=== PATIENT | male | born 1980 | race African-American/Black ===

== ENCOUNTER 2016-09-07 18:56 | Observation (INO) | payer SELFPAY ==
[~2016-09-07] VITALS: Ht 190.5 cm; Wt 87.0 kg
[2016-09-07 18:58] VITALS: BP 118/72; PULSE 77; RESP 20; TEMP 98.4; O2SAT 100
[2016-09-07] MEDS ORDERED: ASPIRIN 81 MG CHEW TAB PO ONE (19:30)
[2016-09-07] MEDS ORDERED: NITROGLYCERIN 0.4 MG SL 25 TABS/BTL SL ONE (19:30)
[2016-09-07] MEDS ORDERED: SODIUM CHLORIDE 0.9% FLUSH 10 ML FLUSH IVF PRN (19:30)
[2016-09-07 19:40] VITALS: BP_SYST 118; BP_SYST 143; BP_DIAS 72; BP_DIAS 76; RESP 18; O2SAT 98
--- NOTE | 2016-09-07 19:58 | RADRPT ---
EXAM DATE/TIME: 09/07/2016 19:41 [place] COMPARISON: CHEST PA & LAT, August 31, 2015, 11:56. INDICATIONS : Chest pain. MEDICAL HISTORY : None. SURGICAL HISTORY : None. ENCOUNTER: Initial ACUITY: 1 day PAIN SCORE: 8/10 LOCATION: Bilateral chest FINDINGS: A single view of the chest demonstrates the lungs to be symmetrically aerated without evidence of mas s, infiltrate or effusion. The cardiomediastinal contours are unremarkable. Osseous structures are intact. CONCLUSION: No acute disease. Ozzie Lombardi MD on September 07, 2016 at 19:56 Board Certified Radiologist. This report was verified electronically.
--- NOTE | 2016-09-07 20:14 | PD ---
HPI Chief Complaint: Chest Pain Time Seen by Provider: 19:30 Travel History International Travel<30 days: No Contact w/Intl Traveler<30days: No Traveled to known affect area: No History of Present Illness HPI Patient is a 35-year-old male presenting to emergency for evaluation of left chest pain. Patient states the pain started later this morning, initially it was in his back, while he was driving this morning he stated the pain started in his left chest wall. He states it's a 10 out of 10, stabbing, aching, throbbing in nature. He states it's exacerbates when he moves his arm. He denies any nausea, vomiting, headaches. He does report shortness of breath and the pain exacerbates. The pain does not radiate and he has not had any palpitations. Patient does admit to using cocaine yesterday he is a tobacco user and smokes marijuana occasionally. Patient reports that he had a "mild NV " 12 years ago. PFSH Past Medical History Hx Anticoagulant Therapy: No Cardiovascular Problems: Yes (mild NV) Chemotherapy: No Cerebrovascular Accident: No Diabetes: No Diminished Hearing: No Respiratory: No Past Surgical History Hysterectomy: No Social History Alcohol Use: No Tobacco Use: Yes (1/2 PPD) Substance Use: Yes (marijuana sometimes) Allergies-Medications (Allergen,Severity, Reaction): Coded Allergies: No Known Allergies (Unverified , 09/07/16) Reported Meds & Prescriptions Reported Meds & Active Scripts Active No Active Prescriptions or Reported Medications Review of Systems Except as stated in HPI: all other systems reviewed are Neg Cardiovascular: Positive: Chest Pain or Discomfort, No: Palpitations, Tachycardia, Diaphoresis, Dyspnea on exertion Respiratory: Positive: Shortness of Breath Gastrointestinal: No: Nausea, Abdominal Pain Musculoskeletal: Positive: Myalgias Physical Exam Narrative GENERAL: Developed, well-nourished, alert gentleman. Resting comfortably in no acute distress. SKIN: Focused skin assessment warm/dry. HEAD: Atraumatic. Normocephalic. EYES: Pupils equal and round. No scleral icterus. No injection or drainage. ENT: No nasal bleeding or discharge. Mucous membranes pink and moist. NECK: Trachea midline. No JVD. CARDIOVASCULAR: Regular rate and rhythm. No murmur appreciated. RESPIRATORY: No accessory muscle use. Clear to auscultation. Breath sounds equal bilaterally. GASTROINTESTINAL: Abdomen soft, non-tender, nondistended. Hepatic and splenic margins not palpable. MUSCULOSKELETAL: No obvious deformities. No clubbing. No cyanosis. No edema. Tenderness to palpation left anterior chest wall. NEUROLOGICAL: Awake and alert. No obvious cranial nerve deficits. Motor grossly within normal limits. Normal speech. PSYCHIATRIC: Appropriate mood and affect; insight and judgment normal. Data Data Last Documented VS Vital Signs Date Time Temp Pulse Resp B/P Pulse Ox O2 Delivery O2 Flow Rate FiO2 09/07/16 19:40 118/72 143/76 09/07/16 19:40 18 98 Room Air 09/07/16 18:58 98.4 77 Orders Electrocardiogram (09/07/16:25) Ckmb (Isoenzyme) Profile (09/07/16 19:25) Complete Blood Count With Diff (09/07/16 19:25) Comprehensive Metabolic Panel (09/07/16:25) D-Dimer (09/07/16 19:25) Magnesium (Mg) (09/07/16 19:25) Prothrombin Time / Inr (Pt) (09/07/16:25) Act Partial Throm Time (Ptt) (09/07/16 19:25) Troponin I (09/07/16 19:25) Chest, Single Ap (09/07/16:25) Ecg Monitoring (09/07/16:25) Bilateral Bp Monitoring (09/07/16:25) Iv Access Insert/Monitor (09/07/16:25) Oximetry (09/07/16 19:25) Oxygen Administration (09/07/16 19:25) Aspirin Chew (Aspirin Chew) (09/07/16 19:30) Sodium Chloride 0.9% Flush (Ns Flush) (09/07/16 19:30) Nitroglycerin Sl (Nitrostat Sl) (09/07/16 19:30) Labs Laboratory Tests Test 09/07/16 19:20 White Blood Count 10.4 TH/MM3 Red Blood Count 4.80 MIL/MM3 Hemoglobin 15.6 GM/DL Hematocrit 44.8 % Mean Corpuscular Volume 93.4 FL Mean Corpuscular Hemoglobin 32.6 PG Mean Corpuscular Hemoglobin 34.9 % Concent Red Cell Distribution Width 12.6 % Platelet Count 348 TH/MM3 Mean Platelet Volume 7.8 FL Neutrophils (%) (Auto) 74.7 % Lymphocytes (%) (Auto) 16.0 % Monocytes (%) (Auto) 6.3 % Eosinophils (%) (Auto) 2.5 % Basophils (%) (Auto) 0.5 % Neutrophils # (Auto) 7.8 TH/MM3 Lymphocytes # (Auto) 1.7 TH/MM3 Monocytes # (Auto) 0.7 TH/MM3 Eosinophils # (Auto) 0.3 TH/MM3 Basophils # (Auto) 0.1 TH/MM3 CBC Comment DIFF FINAL Differential Comment Sodium Level 139 MEQ/L Potassium Level 3.3 MEQ/L Chloride Level 103 MEQ/L Carbon Dioxide Level 28.4 MEQ/L Anion Gap 8 MEQ/L Blood Urea Nitrogen 7 MG/DL Creatinine 1.14 MG/DL Estimat Glomerular Filtration 89 ML/MIN Rate Random Glucose 79 MG/DL Calcium Level 9.2 MG/DL Magnesium Level 2.4 MG/DL Aspartate Amino Transf 11 U/L (AST/SGOT) Albumin 4.2 GM/DL MDM Medical Decision Making Medical Screen Exam Complete: Yes Emergency Medical Condition: Yes Interpretation(s) Vital Signs Date Time Temp Pulse Resp B/P Pulse Ox O2 Delivery O2 Flow Rate FiO2 09/07/16 19:40 118/72 143/76 09/07/16 19:40 18 98 Room Air 09/07/16 18:58 98.4 77 20 118/72 100 Room Air Differential Diagnosis Atypical chest pain versus musculoskeletal strain versus pleurisy versus NV versus arrhythmia versus electrolyte abnormality versus other Narrative Course Patient is a 35-year-old male presenting to emergency room evaluation of chest pain. He does admit to using cocaine last night. Vital signs are stable, labs and imaging ordered and pending. EKG shows sinus rhythm with ST elevation consistent with early repolarization. CBC is unremarkable. Chest x-rays and remarkable, no acute disease. Her patient is transferred to my attending physician Dr. Salamanca at the end of my shift. He will determine patient's disposition. Scripts No Active Prescriptions or Reported Meds Maritza Farooq Sep 07, 2016 20:14 Maritza Farooq Sep 07, 2016 20:14
[2016-09-07 20:29] LABS: AUTOMATED NEUTROPHIL # 7.8 TH/MM3 (1.8-7.7); BASOPHIL # 0.1 TH/MM3 (0-0.2); BASOPHIL % 0.5 % (0.0-2.0); EOSINOPHIL # 0.3 TH/MM3 (0-0.4); EOSINOPHIL % 2.5 % (0.0-4.0); HEMATOCRIT 44.8 % (39.0-51.0); HEMO FLAGS DIFF FINAL; LYMPHOCYTE # 1.7 TH/MM3 (1.0-4.8); MEAN CELL VOLUME 93.4 FL (80.0-100.0); MEAN CORPUSCULAR HEMOGLOBIN 32.6 PG (27.0-34.0); MEAN CORPUSCULAR HGB CONC 34.9 % (32.0-36.0); MONO % 6.3 % (0.0-8.0); NEUT % 74.7 % (16.0-70.0); PLATELET COUNT 348 TH/MM3 (150-450); RED CELL DISTRIBUTION WIDTH 12.6 % (11.6-17.2); WHITE BLOOD COUNT 10.4 TH/MM3 (4.0-11.0)
[2016-09-07 20:43] LABS: ANION GAP 8 MEQ/L (5-15); AST (GOT) 11 U/L (15-37); BICARBONATE 28.4 MEQ/L (21.0-32.0); BLOOD UREA NITROGEN 7 MG/DL (7-18); CHLORIDE 103 MEQ/L (98-107); GLOMERULAR FILTRATION RATE 89 ML/MIN (>89); MAGNESIUM 2.4 MG/DL (1.5-2.5); POTASSIUM 3.3 MEQ/L (3.5-5.1); SODIUM (NA) 139 MEQ/L (136-145)
[2016-09-07 20:47] LABS: ALKALINE PHOSPHATASE 76 U/L (45-117); ALT (GPT) 16 U/L (12-78); APTT (PATIENT) 26.6 SEC (24.3-30.1); CREATINE KINASE 165 U/L (39-308); INTERNATIONAL NORMALIZED RATIO 0.9 RATIO; PROTHROMBIN TIME - PATIENT 10.4 SEC (9.8-11.6); TOTAL BILIRUBIN ADULT 0.5 MG/DL (0.2-1.0)
[2016-09-07 21:02] LABS: CKMB 0.9 NG/ML (0.5-3.6)
--- NOTE | 2016-09-07 21:06 | PD ---
Data Data Last Documented VS Vital Signs Date Time Temp Pulse Resp B/P Pulse Ox O2 Delivery O2 Flow Rate FiO2 09/07/16 19:40 118/72 143/76 09/07/16 19:40 18 98 Room Air 09/07/16 18:58 98.4 77 Orders Electrocardiogram (09/07/16 19:25) Ckmb (Isoenzyme) Profile (09/07/16 19:25) Complete Blood Count With Diff (09/07/16 19:25) Comprehensive Metabolic Panel (09/07/16 19:25) D-Dimer (09/07/16 19:25) Magnesium (Mg) (09/07/16 19:25) Prothrombin Time / Inr (Pt) (09/07/16:25) Act Partial Throm Time (Ptt) (09/07/16 19:25) Troponin I (09/07/16 19:25) Chest, Single Ap (09/07/16 19:25) Ecg Monitoring (09/07/16 19:25) Bilateral Bp Monitoring (09/07/16:25) Iv Access Insert/Monitor (09/07/16:25) Oximetry (09/07/16 19:25) Oxygen Administration (09/07/16 19:25) Aspirin Chew (Aspirin Chew) (09/07/16 19:30) Sodium Chloride 0.9% Flush (Ns Flush) (09/07/16 19:30) Nitroglycerin Sl (Nitrostat Sl) (09/07/16 19:30) CKMB (09/07/16 19:20) CKMB% (09/07/16 19:20) Admit Order (Ed Use Only) (09/07/16 ) Activity Bed Rest With Brp (09/07/16 21:25) Vital Signs (Adult) Q4H (09/07/16 21:25) Cardiac Rhythm .As Directed (09/07/16 21:25) Notify Dr: Other .PRN (09/07/16 21:25) Resp Oxygen Nasal Cannula (09/07/16 ) Diet Npo (09/08/16 Breakfast) Ckmb (Isoenzyme) Profile (09/07/16 22:20) Ckmb (Isoenzyme) Profile (09/08/16 01:20) Troponin I (09/07/16 22:20) Troponin I (09/08/16 01:20) Electrocardiogram (09/07/16 22:20) Electrocardiogram (09/08/16 01:20) ^ Obtain (09/07/16 21:25) Sodium Chloride 0.9% Flush (Ns Flush) (09/08/16 09:00) Phlebotomy Instructor / Telemetry [id number] (09/07/16 21:25) Notify Parameters (09/07/16 21:25) Labs Laboratory Tests Test 09/07/16 19:20 White Blood Count 10.4 TH/MM3 Red Blood Count 4.80 MIL/MM3 Hemoglobin 15.6 GM/DL Hematocrit 44.8 % Mean Corpuscular Volume 93.4 FL Mean Corpuscular Hemoglobin 32.6 PG Mean Corpuscular Hemoglobin 34.9 % Concent Red Cell Distribution Width 12.6 % Platelet Count 348 TH/MM3 Mean Platelet Volume 7.8 FL Neutrophils (%) (Auto) 74.7 % Lymphocytes (%) (Auto) 16.0 % Monocytes (%) (Auto) 6.3 % Eosinophils (%) (Auto) 2.5 % Basophils (%) (Auto) 0.5 % Neutrophils # (Auto) 7.8 TH/MM3 Lymphocytes # (Auto) 1.7 TH/MM3 Monocytes # (Auto) 0.7 TH/MM3 Eosinophils # (Auto) 0.3 TH/MM3 Basophils # (Auto) 0.1 TH/MM3 CBC Comment DIFF FINAL Differential Comment Prothrombin Time 10.4 SEC Prothromb Time International 0.9 RATIO Ratio Activated Partial 26.6 SEC Thromboplast Time D-Dimer Quantitative (PE/DVT) 0.24 MG/L FEU Sodium Level 139 MEQ/L Potassium Level 3.3 MEQ/L Chloride Level 103 MEQ/L Carbon Dioxide Level 28.4 MEQ/L Anion Gap 8 MEQ/L Blood Urea Nitrogen 7 MG/DL Creatinine 1.14 MG/DL Estimat Glomerular Filtration 89 ML/MIN Rate Random Glucose 79 MG/DL Calcium Level 9.2 MG/DL Magnesium Level 2.4 MG/DL Total Bilirubin 0.5 MG/DL Aspartate Amino Transf 11 U/L (AST/SGOT) Alanine Aminotransferase 16 U/L (ALT/SGPT) Alkaline Phosphatase 76 U/L Total Creatine Kinase 165 U/L Creatine Kinase MB 0.9 NG/ML Troponin I LESS THAN 0.02 NG/ML Total Protein 7.9 GM/DL Albumin 4.2 GM/DL MDM Supervised Visit with SOLITARIO: Yes Narrative Course Patient care assumed from Maritza LIU at 2100. Patient 35-year-old male admits to cocaine use yesterday presents emergency Department with chest pain primarily on the left side feels tight. Per physician Hernan does have reproducible qualities. EKG shows some early repolarization otherwise negative. On my evaluation with the patient is resting comfortably in no apparent distress. Labs show a negative troponin. Discussed with him since he is a smoker half pack a day for many years as well as cocaine user recommended observation overnight in the chest pain center and he is agreeable. Diagnosis Primary Impression: Chest pain Qualified Code: R07.9 - Chest pain, unspecified type Additional Impression: Cocaine abuse Admitting Information Admitting Physician Requests: Observation Scripts No Active Prescriptions or Reported Meds Disposition: 01 DISCHARGE HOME Condition: Stable Etienne Salamanca MD Sep 07, 2016 21:06
[2016-09-07 22:25] VITALS: O2SAT 97
[2016-09-07 23:15] VITALS: PULSE 66
[2016-09-07 23:17] LABS: CREATINE KINASE 141 U/L (39-308)
[2016-09-07 23:30] LABS: CKMB LESS THAN 0.5 NG/ML (0.5-3.6)
[2016-09-07 23:49] VITALS: BP 132/60; PULSE 57; RESP 18; TEMP 97.5; O2SAT 98
[2016-09-08 02:38] LABS: CREATINE KINASE 135 U/L (39-308)
[2016-09-08 02:51] LABS: CKMB 0.7 NG/ML (0.5-3.6)
[2016-09-08 04:30] VITALS: PULSE 54
[2016-09-08 05:29] VITALS: BP 112/66; PULSE 54; RESP 18; O2SAT 97
[2016-09-08 08:00] VITALS: PULSE 63
[2016-09-08 08:15] VITALS: O2SAT 96
[2016-09-08 08:17] VITALS: BP 124/72; PULSE 60; RESP 18; TEMP 97; O2SAT 98
[2016-09-08] MEDS ORDERED: POTASSIUM CHLORIDE 20 MEQ CONTROLLED RELEASE TAB PO ONE (09:00)
[2016-09-08] MEDS ORDERED: SODIUM CHLORIDE 0.9% FLUSH 10 ML FLUSH SCH (09:00)
[2016-09-08] MEDS ORDERED: KETOROLAC TROMETHAMINE 30 MG/ML (IVP) VIAL IVP ONE (09:00)
--- NOTE | 2016-09-08 10:25 | HHI.HP ---
HPI Primary Care Physician No Primary Care Physician Chief Complaint Chest pain History of Present Illness This is a 35-year-old male that presents to the ED via private vehicle with a complaint of developing a discomfort yesterday at 7:00 in the morning almost immediately after awakening. 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 He found certain movements would worsen the symptoms. When the discomfort would intensify at a higher level he would become short of breath. There is no nausea or diaphoresis. He cannot recall any injuries or activities that may have caused his discomfort. He states that he did a bump of cocaine 2 days ago. He is is cocaine on average about twice a week. He also smokes marijuana. States he was told 12 years ago that had a mild MN and that is related to stress. He would benefit proximal 23 years old. He states he never had a heart catheterization or stress test. Denies recent illness. Denies fevers or chills. Review of Systems General: Patient denies fevers, chills recent, and recent travel HEENT: Patient denies headache, sore throat, difficulty swallowing. Cardiovascular: Has the chest discomfort as mentioned above. Denies sensation of heart beating rapidly or irregularly. No syncope. Denies diaphoresis. Respiratory: He was short of breath with high-level pain intensities. Denies inspirational chest discomfort. Denies coughing wheezing or hemoptysis. GI: Patient denies nausea, vomiting, diarrhea, abdominal pain, bloody stools. Musculoskeletal: Patient denies joint pain or edema. Denies calf pain or edema. Neurovascular: Patient denies numbness, tingling, weakness in extremities. Denies headache. Endocrine: Denies polyuria and polydipsia. Hematologic: Denies easy bruising. Skin: Denies rash or itching. Past Family Social History Allergies: Coded Allergies: No Known Allergies (Unverified , 09/07/16) Past Medical History States that he was told that he had a "mild heart attack"years ago and those related to stress. Patient smokes cigarettes and uses cocaine and marijuana. Denies hypertension, hyperlipidemia, diabetes, and CAD. Past Surgical History Noncontributory. Reported Medications Reported Meds & Active Scripts Active No Active Prescriptions or Reported Medications Active Ordered Medications Current Medications Medications (Trade) Dose Ordered Sig/Leydi Route Start Time Stop Time Status Last Admin (NS Flush) 2 ml UNSCH PRN IVF 09/07/16 19:30 09/07/16 19:42 (NS Flush) 2 ml BID .XX 09/08/16 09:00 09/08/16 09:41 Family History Denies family history of CAD. Social History Patient smokes one half pack cigarettes daily for 15 years. Has occasional marijuana. Uses cocaine on average 2 times a week and states he did a bump of cocaine 2 days ago. Physical Exam Vital Signs Vital Signs Date Time Temp Pulse Resp B/P Pulse Ox O2 Delivery O2 Flow Rate FiO2 09/08/16 08:17 97.0 60 18 124/72 98 09/08/16 05:29 54 18 112/66 97 09/08/16 04:30 54 09/07/16 23:49 97.5 57 18 132/60 98 09/07/16 23:15 66 09/07/16 22:25 97 21 09/07/16 19:40 118/72 143/76 09/07/16 19:40 18 98 Room Air 09/07/16 18:58 98.4 77 20 118/72 100 Room Air Physical Exam GENERAL: This is a well-nourished, well-developed patient, in no apparent distress. Patient speaks in clear complete sentences. Patient is pleasant. HEENT: Head is atraumatic and normocephalic. Neck is supple without lymphadenopathy and trachea is midline. No JVD or carotid bruits. CARDIOVASCULAR: Regular rate and rhythm without murmurs, gallops, or rubs. RESPIRATORY: Left chest wall is tender to palpate. This is worsening the discomfort he has had since yesterday at 7 in the morning. Clear to auscultation. Breath sounds equal bilaterally. No wheezes, rales, or rhonchi. No use of accessory muscles. GASTROINTESTINAL: Abdomen is nontender, nondistended. Abdomen soft. No obvious pulsatile mass or bruit. No CVA tenderness. Strong femoral pulses bilaterally. Normal bowel sounds in all quadrants. MUSCULOSKELETAL: Patient is moving upper and lower extremities freely. No calf tenderness or edema, no Homans sign. Strong pulses in upper and lower extremities. NEUROLOGICAL: Patient is alert and oriented. Cranial nerves 2-12 are grossly intact. No focal deficits and speech is clear. SKIN: No rash and turgor is normal. Laboratory Laboratory Tests Test 09/07/16 09/07/16 09/08/16 19:20 22:20 01:35 White Blood Count 10.4 Red Blood Count 4.80 Hemoglobin 15.6 Hematocrit 44.8 Mean Corpuscular Volume 93.4 Mean Corpuscular Hemoglobin 32.6 Mean Corpuscular Hemoglobin 34.9 Concent Red Cell Distribution Width 12.6 Platelet Count 348 Mean Platelet Volume 7.8 Neutrophils (%) (Auto) 74.7 Lymphocytes (%) (Auto) 16.0 Monocytes (%) (Auto) 6.3 Eosinophils (%) (Auto) 2.5 Basophils (%) (Auto) 0.5 Neutrophils # (Auto) 7.8 Lymphocytes # (Auto) 1.7 Monocytes # (Auto) 0.7 Eosinophils # (Auto) 0.3 Basophils # (Auto) 0.1 CBC Comment DIFF FINAL Differential Comment Prothrombin Time 10.4 Prothromb Time International 0.9 Ratio Activated Partial 26.6 Thromboplast Time D-Dimer Quantitative (PE/DVT) 0.24 Sodium Level 139 Potassium Level 3.3 Chloride Level 103 Carbon Dioxide Level 28.4 Anion Gap 8 Blood Urea Nitrogen 7 Creatinine 1.14 Estimat Glomerular Filtration 89 Rate Random Glucose 79 Calcium Level 9.2 Magnesium Level 2.4 Total Bilirubin 0.5 Aspartate Amino Transf 11 (AST/SGOT) Alanine Aminotransferase 16 (ALT/SGPT) Alkaline Phosphatase 76 Total Creatine Kinase 165 141 135 Creatine Kinase MB 0.9 LESS THAN 0.5 0.7 Troponin I LESS THAN 0.02 LESS THAN 0.02 LESS THAN 0.02 Total Protein 7.9 Albumin 4.2 Result Diagram: 09/07/16191909/07/161919 Imaging Last Impressions Chest X-Ray 09/07/161924 Signed Impressions: Service Date/Time: Wednesday, September 07, 2016 19:41 - CONCLUSION: No acute disease. Ozzie Lombardi MD Course EKGs have been sinus rhythm with a pattern of early repolarization. Assessment and Plan Assessment and Plan * Atypical chest pain: Patient has had serial cardiac enzymes and EKGs for ruling out purposes. He will be seen by Dr. Parham of cardiology in the chest pain center and will likely be discharged afterwards. His discomfort appears be atypical. He'll be given Toradol 30 IV 1. * Hypokalemia: Patient was given potassium supplementation. * Tobacco abuse: Patient has been counseled on the importance of smoking cessation. * Polysubstance abuse: Patient has been counseled on importance of sustaining from illicit drug use. Patient is stable at this time. He is agreeable to this plan. John Mayers Sep 08, 2016 10:25
--- NOTE | 2016-09-08 11:28 | HHI.DCPOC ---
Discharge Care Plan Diagnosis: (1) Chest pain, atypical (2) Hypokalemia (3) Tobacco abuse (4) Polysubstance abuse Goals to Promote Your Health * To prevent worsening of your condition and complications * To maintain your health at the optimal level Directions to Meet Your Goals Take your medications as prescribed Follow your dietary instruction Follow activity as directed Keep your appointments as scheduled Take your immunizations and boosters as scheduled If your symptoms worsen call your PCP, if no PCP go to Urgent Care Center or Emergency Room Smoking is Dangerous to Your Health. Avoid second hand smoke Call the 24-hour hour crisis hotline for domestic abuse at John Mayers Sep 08, 2016 11:28
--- NOTE | 2016-09-08 14:48 | EKG ---
Date Performed: 09/08/2016 Time Performed: 01:54:58 PTAGE: 35 years EKG: SINUS BRADYCARDIA WITH SINUS ARRHYTHMIA ST ELEVATION, PROBABLY EARLY REPOLARIZATION BORDERL INE ECG PREVIOUS TRACING : 09/07/2016 22.18 Since previous tracing, no significant change noted DOCTOR: Gil Parham Interpretating Date/Time 09/08/2016 14:47:37
--- NOTE | 2016-09-08 14:53 | EKG ---
Date Performed: 09/07/2016 Time Performed: 22:18:15 PTAGE: 35 years EKG: SINUS BRADYCARDIA ST ELEVATION, PROBABLY EARLY REPOLARIZATION BORDERLINE ECG PREVIOUS TRACING : 09/07/2016 19.23 Since previous tracing, no significant change noted DOCTOR: Gil Parham Interpretating Date/Time 09/08/2016 14:52:56
--- NOTE | 2016-09-08 14:55 | EKG ---
Date Performed: 09/07/2016 Time Performed: 19:23:35 PTAGE: 35 years EKG: Sinus rhythm ST ELEVATION, PROBABLY EARLY REPOLARIZATION BORDERLINE ECG PREVIOUS TRACING : 08/31/2015 11.04 Since previous tracing, no significant change noted DOCTOR: Gil Parham Interpretating Date/Time 09/08/2016 14:54:46
== END 2016-09-08 12:11 | disposition home or self-care (01) ==
LOC: NEPD 18:56 → NEDA 21:29 → NEPHCDU 23:00
PROVIDERS: ADMIT Internal Medicine Interventional Cardiology; ATTEND Internal Medicine Interventional Cardiology
DX: R07.89 Other chest pain (principal); E87.6 Hypokalemia; F12.10 Cannabis abuse, uncomplicated; F14.10 Cocaine abuse, uncomplicated; I25.2 Old myocardial infarction; F17.210 Nicotine dependence, cigarettes, uncomplicated
CPT/HCPCS: 71010; 80053; 82550; 82552; 83735; 84484; 85025; 85379; 85610; 85730; 93005; 99285; G0378; J1885